=== PATIENT | female | born 1995 | race Two or more races ===

== ENCOUNTER 2019-06-12 21:23 | Emergency (ER) | payer OTHER ==
[2019-06-12] MEDS ORDERED: KETOROLAC TROMETHAMINE INJ/PF 30 MG/1 ML SDV IV ONE (21:59)
[2019-06-12] MEDS ORDERED: ONDANSETRON HCL INJ/PF 4 MG/2 ML SDV IV ONE (21:59)
--- NOTE | 2019-06-12 21:59 | ER Document Report ---
ED Medical Screen (RME) - General Chief Complaint: Flank Pain Stated Complaint: RIGHT FLANK PAIN Time Seen by Provider: 06/12/19 21:56 Mode of Arrival: Ambulatory Information source: Patient Notes: 34-year-old male presented to ED for complaint of right-sided flank pain. She states this started last night and was coming and going but now is staying. She states she has had diarrhea x5 or 6 and a little nausea no vomiting. Patient denies any burning or blood in the urine but she states it does hurt when she goes and she is gone very frequently. Last menstrual cycle started Thursday is week. Patient denies smoking or any illicit drugs but she does drink alcohol once a week. She states the only medical history she has is an appendectomy and a . I have greeted and performed a rapid initial assessment of this patient. A comprehensive ED assessment and evaluation of the patient, analysis of test results and completion of medical decision making process will be conducted by an additional ED providers. - Related Data Allergies/Adverse Reactions: No Known Allergies Allergy (Verified 06/12/19 21:28) Physical Exam - Vital signs Vitals: Temp Pulse Resp BP Pulse Ox 98.7 F 65 18 140/75 H 99 06/12/19 21:27 06/12/19 21:27 06/12/19 21:27 06/12/19 21:27 06/12/19 21:27 Course - Vital Signs Vital signs: Temp Pulse Resp BP Pulse Ox 98.7 F 65 18 140/75 H 99 06/12/19 21:27 06/12/19 21:27 06/12/19 21:27 06/12/19 21:27 06/12/19 21:27
[2019-06-12 22:44] LABS: ABSOLUTE EOSINOPHILS # (AUTO) 0.1 10^3/uL (0.0-0.6); ABSOLUTE LYMPHOCYTES (AUTO) 1.2 10^3/uL (0.5-4.7); ABSOLUTE MONOCYTES (AUTO) 0.8 10^3/uL (0.1-1.4); BASOPHILS % (AUTO) 0.2 % (0-2); EOSINOPHILS % (AUTO) 0.7 % (0-6); HEMOGLOBIN 15.1 g/dL (12.0-15.5); LYMPHOCYTES % (AUTO) 11.5 % (13-45); MEAN CORPUSCULAR HEMOGLOBIN 32.8 pg (27.0-33.4); MEAN CORPUSCULAR HGB CONC 35.9 g/dL (32.0-36.0); MEAN CORPUSCULAR VOLUME 91 fl (80-97); MONOCYTES % (AUTO) 8.1 % (3-13); PLATELET COUNT 207 10^3/uL (150-450); RED BLOOD COUNT 4.61 10^6/uL (3.72-5.28); RED CELL DISTRIBUTION WIDTH 12.6 % (11.5-14.0); SEGMENTED NEUTROPHILS % (AUTO) 79.5 % (42-78); TOTAL CELLS COUNTED % (AUTO) 100 %; WHITE BLOOD COUNT 10.1 10^3/uL (4.0-10.5)
[2019-06-12 22:55] LABS: APPEARANCE,URINE CLEAR; BILIRUBIN,URINE NEGATIVE (NEGATIVE); COLOR,URINE AMBER; GLUCOSE, URINE NEGATIVE (NEGATIVE); KETONES,URINE NEGATIVE (NEGATIVE); LEUKOCYTE ESTERASE,URINE MODERATE (NEGATIVE); NITRITE,URINE POSITIVE (NEGATIVE); PROTEIN,URINE 30 mg/dL (NEGATIVE); URINE SPECIFIC GRAVITY 1.008; UROBILINOGEN,URINE NEGATIVE mg/dL (<2.0)
[2019-06-12 23:14] LABS: ALBUMIN 4.7 g/dL (3.5-5.0); ALKALINE PHOSPHATASE 83 U/L (38-126); ANION GAP 11 (5-19); ASPARTATE AMINO TRANSFERASE 20 U/L (14-36); BILIRUBIN,DIRECT 0.1 mg/dL (0.0-0.4); BILIRUBIN,TOTAL 0.7 mg/dL (0.2-1.3); BLOOD UREA NITROGEN 8 mg/dL (7-20); CALCIUM 9.8 mg/dL (8.4-10.2); CARBON DIOXIDE 27 mmol/L (22-30); CHLORIDE 101 mmol/L (98-107); GLUCOSE 82 mg/dL (75-110); POTASSIUM 3.8 mmol/L (3.6-5.0); TOTAL PROTEIN 7.8 g/dL (6.3-8.2)
--- NOTE | 2019-06-13 00:25 | RADIOLOGY REPORT (SQ) ---
EXAM: US RETROPERITONEUM CLINICAL DATA: 24-year-old female with right flank pain TECHNICAL DATA: Grayscale and Doppler ultrasound imaging of the retroperitoneum was performed including the kidneys, bladder and aorta. Comparison: None. FINDINGS: The right kidney measures 9.0 x 4.6 x 4.3 cm. The renal cortex is normal. There is no evidence of renal mass, calculi or perinephric fluid collection. There is no pelvocaliectasis. The left kidney measures 10.1 x 4.1 x 4.6 cm. The renal cortex is normal. There is no evidence of renal mass, calculi or perinephric fluid collection. There is no pelvocaliectasis. The abdominal aorta is normal in caliber. The bladder is decompressed on this examination. The patient voided prior to the exam. IMPRESSION: 1. Grossly normal sonographic evaluation of the kidneys. 2. Decompressed urinary bladder.
[2019-06-13] MEDS ORDERED: CEPHALEXIN 500 MG CAPSULE PO ONE (02:52)
--- NOTE | 2019-06-13 03:01 | ER Document Report ---
ED GI/ - General Chief Complaint: Flank Pain Stated Complaint: RIGHT FLANK PAIN Time Seen by Provider: 06/12/19 21:56 Mode of Arrival: Ambulatory Notes: Patient is a 24-year-old female that comes emergency department for chief complaint of right flank pain. She states she also has discomfort with urination. Symptoms have been worsening for 1 week. She denies nausea or vomiting, fever or chills. She denies vaginal bleeding or discharge. She denies any other complaints. Past medical history of appendectomy and C- section. No other medical history reported. LMP within the past month. - Related Data Allergies/Adverse Reactions: No Known Allergies Allergy (Verified 06/12/19 22:09) Past Medical History - General Information source: Patient - Social History Smoking Status: Never Smoker Frequency of alcohol use: Occasional Drug Abuse: None Lives with: Family Family History: Reviewed & Not Pertinent Patient has suicidal ideation: No Patient has homicidal ideation: No - Medical History Medical History: Negative Past Surgical History: Reports: Hx Appendectomy, Hx Section - x1 - Immunizations Immunizations up to date: Yes Hx Diphtheria, Pertussis, Tetanus Vaccination: Yes Review of Systems - Review of Systems Constitutional: No symptoms reported EENT: No symptoms reported Cardiovascular: No symptoms reported Respiratory: No symptoms reported Gastrointestinal: See HPI Genitourinary: See HPI Female Genitourinary: No symptoms reported Musculoskeletal: No symptoms reported Skin: No symptoms reported Hematologic/Lymphatic: No symptoms reported Neurological/Psychological: No symptoms reported Physical Exam - Vital signs Vitals: Temp Pulse Resp BP Pulse Ox 98.7 F 65 18 140/75 H 99 06/12/19 21:27 06/12/19 21:27 06/12/19 21:27 06/12/19 21:27 06/12/19 21:27 - Notes Notes: GENERAL: Alert, interacts well. No acute distress. HEAD: Normocephalic, atraumatic. EYES: Pupils equal, round, and reactive to light. Extraocular movements intact. ENT: Oral mucosa moist, tongue midline. Oropharynx unremarkable. Airway patent. LUNGS: Clear to auscultation bilaterally, no wheezes, rales, or rhonchi. No respiratory distress. HEART: Regular rate and rhythm. No murmur ABDOMEN: Soft, non-tender. Non-distended. Bowel sounds present in all 4 quadrants. GENITOURINARY: Deferred EXTREMITIES: Moves all 4 extremities spontaneously. No edema, normal radial and dorsalis pedis pulses bilaterally. No cyanosis. BACK: No CVA tenderness noted. Unremarkable otherwise. NEUROLOGICAL: Alert and oriented x3. Normal speech. Cranial nerves II through XII grossly intact. PSYCH: Normal affect, normal mood. SKIN: Warm, dry, normal turgor. No rashes or lesions noted. Course - Re-evaluation Re-evalutation: Patient smiling and well-appearing. Completely unremarkable physical exam. Unremarkable vital signs. CBC, chemistry unremarkable. Ultrasound unremarkable. Urinalysis does indicate an infection. This is consistent with patient's presentation. Discussed antibiotic therapy, follow-up, return precautions. Patient states understanding and agreement. Stable time of discharge. - Vital Signs Vital signs: Temp Pulse Resp BP Pulse Ox 98.2 F 63 18 126/78 H 99 06/13/19 03:36 06/13/19 03:36 06/12/19 21:27 06/13/19 03:36 06/13/19 03:36 - Laboratory Result Diagrams: 06/12/19 22:13 06/12/19 22:13 Laboratory results interpreted by me: 06/12/19 06/12/19 22:13 22:23 Lymph % (Auto) 11.5 L Seg Neutrophils % 79.5 H Urine Protein 30 H Urine Blood MODERATE H Urine Nitrite POSITIVE H Ur Leukocyte Esterase MODERATE H Discharge - Discharge Clinical Impression: Flank pain, Dysuria Condition: Stable Disposition: HOME, SELF-CARE Additional Instructions: Your evaluation is consistent with a urinary tract infection. Take antibiotics as prescribed to completion. Symptoms should resolve with time. Follow-up with primary care. Come back if you are worse including worsening pain, vomiting, fever, etc. Prescriptions: Cephalexin Monohydrate [Keflex 500 mg Capsule] 500 mg PO BID 7 Days #14 capsule Forms: Return to Work
[2019-06-13 03:43] VITALS: BP 126/78
== END 2019-06-13 03:43 | disposition home or self-care (01) ==
LOC: ER 21:23
DX: R30.0 Dysuria (principal); R10.9 Unspecified abdominal pain
CPT/HCPCS: 99284; 96374; 96375; 36415; 87086; 84703; 85025; 87088; 80053; 81001; 87186; 76770; J1885; J2405